=== PATIENT | male | born 1980 | race Caucasian/White ===

== ENCOUNTER → 2021-07-17 | Outpatient (CLI) | payer OTHER ==
[~2021-07-17] MED LIST: ALBU90OI INH; ERYT.5TO OD; ESCI10 PO; PRED20 PO
[2021-07-17 15:20] LABS: BASOPHILS ABSOLUTE AUTO 0.01 K/mm3 (0.00-0.23); BASOPHILS PERCENT AUTO 0 % (0-2); EOSINOPHILS ABSOLUTE AUTO 0.24 K/mm3 (0.00-0.68); EOSINOPHILS PERCENT AUTO 3 % (0-6); Hematocrit 45.4 % (37.0-53.0); Hemoglobin 16.5 g/dL (13.5-17.5); IMMATURE GRAN ABSOLUTE AUTO 0.02 K/mm3 (0.00-0.10); IMMATURE GRAN PERCENT AUTO 0 % (0-1); LYMPHOCYTES ABSOLUTE AUTO 1.07 K/mm3 (0.84-5.20); LYMPHOCYTES PERCENT AUTO 12 % (21-46); MONOCYTES ABSOLUTE AUTO 0.64 K/mm3 (0.16-1.47); MONOCYTES PERCENT AUTO 7 % (4-13); Mean Corpuscular HGB 31.7 pg (26.0-34.0); Mean Corpuscular HGB Conc 36.3 g/dL (31.5-36.5); Mean Corpuscular Volume 87 fL (80-100); Mean Platelet Volume 9.6 fL (9.1-12.4); NEUTROPHILS PERCENT AUTO 78 % (41-73); Platelet Count 216 K/mm3 (150-400); RDW Coefficient Variation 12.6 % (11.7-14.2); RDW Standard Deviation 39.8 fL (35.1-46.3); White Blood Cell Count 8.88 K/mm3 (4.00-11.30)
[2021-07-17 15:32] LABS: Alanine Aminotransfer (ALT/SGP 67 U/L (12-78); Albumin/Globulin Ratio 1.1 (0.8-1.8); Alk Phos 93 U/L (40-126); Anion Gap 11 mmol/L (6-16); Aspartate Aminotrans (AST/SGOT 22 U/L (12-37); Bilirubin, Total 0.7 mg/dL (0.1-1.0); Blood Urea Nitrogen 10 mg/dL (8-24); Bun/Creatinine Ratio 11.1 (12.0-20.0); CO2, Blood 25 mmol/L (21-32); Calcium, Blood 9.3 mg/dL (8.5-10.1); Chloride, Blood 103 mmol/L (98-108); Globulin, Blood 3.6 g/dL (2.2-4.0); Glomerular Filtration Rate >60 (60-); Glucose, Blood 108 mg/dL (70-99); Potassium, Blood 3.8 mmol/L (3.5-5.5); Sodium, Blood 139 mmol/L (136-145); Total Protein, Blood 7.6 g/dL (6.4-8.2)
== END | disposition home or self-care (01) ==
LOC: LAB 15:16 → LAB SHORT 15:16
PROVIDERS: Physician Assistant Medical
DX: S30.1XXA Contusion of abdominal wall, initial encounter (principal)
CPT/HCPCS: 80053; 85025

== ENCOUNTER 2022-01-04 21:25 | Emergency (ER) | payer OTHER ==
[~2022-01-04] VITALS: Ht 190.5 cm; Wt 127.0 kg
[2022-01-04] MEDS ORDERED: PENVK500 PO (22:41)
== END 2022-01-04 22:55 | disposition home or self-care (01) ==
LOC: ER 21:25
DX: K02.9 Dental caries, unspecified (principal)
CPT/HCPCS: 99282; A9270

== ENCOUNTER 2024-01-02 10:47 | Day surgery (SDC) | payer OTHER ==
[~2024-01-02] VITALS: Ht 190.5 cm; Wt 130.3 kg
[~2024-01-02 10:47] MED LIST changes: +CeFAZolin Sodium 2,000 MG VIAL ONE; +Lactated Ringer's 1,000 ML IV ONE; +NS 0 ML IV ONE; +PENVK500 PO
[2024-01-02] MEDS ORDERED: CeFAZolin Sodium 3,000 MG in NS 100 ML IV SCH (11:05)
[2024-01-02] MEDS ORDERED: METFORMIN HCL500 M3 PO (11:14)
[2024-01-02] MEDS ORDERED: Lactated Ringer's 1,000 ML IV ONE (11:37)
[2024-01-02] MEDS ORDERED: propofoL 20 ML IV ONE ×2 (11:43→12:06)
[2024-01-02] MEDS ORDERED: FentaNYL Citrate 50 MCG/ML 2 ML Injection ONE (11:43)
[2024-01-02] MEDS ORDERED: Midazolam HCl 1MG / ML 2ML Vial ONE (11:47)
[2024-01-02] MEDS ORDERED: ROPIVACAINE INJ ONE (12:05)
[2024-01-02] MEDS ORDERED: EPINEPhrine HCl 1 MG/ML 1ML Amp XX ONE (12:09)
[2024-01-02] MEDS ORDERED: Ondansetron HCl 2 MG / ML 2ML Vial ONE (12:13)
[2024-01-02] MEDS ORDERED: Metoclopramide HCl 5MG / ML 2ML Vial ONE (12:13)
[2024-01-02] MEDS ORDERED: Ketorolac Tromethamine 30mg Vial ONE (12:13)
[2024-01-02] MEDS ORDERED: Dexamethasone Sod Phos 10 MG/ML 1ML VIAL ONE (12:13)
--- NOTE | 2024-01-02 12:38 | NUR ---
01/02/24 1238 OLGA ATWOOD IV ACCESS PULLED BY PT BETWEEN OR AND PACU. BANDAGED UPON ARRIVAL TO PACU.
[2024-01-02 13:29] VITALS: BP 120/85
== END 2024-01-02 13:15 | disposition home or self-care (01) ==
LOC: ORSCSDS 10:47
PROVIDERS: Podiatrist Foot & Ankle Surgery
PROC: 0Y6X0Z3 Detachment at Right 5th Toe, Low, Open Approach (ICD-10-PCS; principal; 2024-01-02 12:00)
DX: M21.961 Unspecified acquired deformity of right lower leg (principal); M79.674 Pain in right toe(s); J44.89 Other specified chronic obstructive pulmonary disease; K21.9 Gastro-esophageal reflux disease without esophagitis; E66.01 Morbid (severe) obesity due to excess calories; Z68.37 Body mass index [BMI] 37.0-37.9, adult; F17.220 Nicotine dependence, chewing tobacco, uncomplicated; Z79.899 Other long term (current) drug therapy
CPT/HCPCS: 82947; 88305; 88311; J0171; J0690; J1100; J1885; J2250; J2405; J2704; J2765; J2795; J3010; J7120